=== PATIENT | male | born 1990 | race Caucasian/White ===

== ENCOUNTER 2024-05-13 08:56 | Emergency (ER) | payer OTHER, SELFPAY ==
[2024-05-13 08:57] VITALS: BP 138/81
--- NOTE | 2024-05-13 09:06 | ED.GENMED ---
History of Present Illness
<Joanna Ocampo PA-C - Last Filed: 05/13/24 09:52>
General
Chief Complaint: Eye Problems
Source: patient
Exam Limitations: none
Time Seen by Provider: 05/13/24 09:06
Nursing documentation reviewed up to this point in time: agreed with
History of Present Illness
History of Present Illness:
This is a 33-year-old male with no past medical history presenting emergency department today with concerns of redness and drainage from his right eye. Patient reports that this started yesterday when he first started to develop cough, runny nose,
and sore throat. He noticed that at that same time, his right eye was red and he said there was purulent drainage from his right eye. Patient states that when he woke up this morning, it was difficult to open both of his eyes because of drainage
and he noticed that his eyelids were slightly swollen. Patient states that occasionally he will get some blurry vision when he has drainage in his eye but he states that when he waits it clean, he is able to see without difficulty. Patient denies
any trauma to the area. Patient denies any history of eye problems other than nearsightedness. Patient denies any allergies. Patient denies any chest pain or shortness of breath. Patient has been using Mucinex and lubricating eyedrops with some
relief. He is not a contact lens wearer. He denies any foreign body exposure.
Review of Systems
<Joanna Ocampo PA-C - Last Filed: 05/13/24 09:52>
Review of Systems
All Other Systems: ROS reviewed and negative except as documented in HPI and ROS
Phy Exam
<Joanna Ocampo PA-C - Last Filed: 05/13/24 09:52>
Physical Exam
Physical Exam:
General: Patient is well appearing and in no acute distress; non-toxic
Skin: Warm and dry, no rashes or lesions
Head: Normocephalic, atraumatic
Eyes: Mild bilateral upper palpebral swelling. Right scleral injection noted with mild purulent drainage. Sclera non-icteric. EOMs intact. Vision 20/30.
Mouth: No intraoral lesions
Throat: Mild pharyngeal erythema, uvula midline, no tonsillar hypertrophy or exudates
Cardiac: Regular rate and rhythm, no murmurs
Pulm: Normal respiratory effort, no wheezes, rales, or rhonchi
Neuro: CN II-XII intact, no focal neurologic deficits.
Psychiatric: Appropriate mood and affect.
Course
<Joanna Ocampo PA-C - Last Filed: 05/13/24 09:52>
Vital Signs
Initial and Last Documented VS:
Initial Vital Signs
Temp Pulse Resp BP Pulse Ox
98.3 F 70 16 138/81 98
05/13/24 08:57 05/13/24 08:57 05/13/24 08:57 05/13/24 08:57 05/13/24 08:57
Last Documented Vital Signs
Temp Pulse Resp BP Pulse Ox
98.3 F 70 16 138/81 98
05/13/24 08:57 05/13/24 08:57 05/13/24 08:57 05/13/24 08:57 05/13/24 08:57
<Juan Major MD - Last Filed: 05/13/24 09:52>
Vital Signs
Initial and Last Documented VS:
Initial Vital Signs
Temp Pulse Resp BP Pulse Ox
98.3 F 70 16 138/81 98
05/13/24 08:57 05/13/24 08:57 05/13/24 08:57 05/13/24 08:57 05/13/24 08:57
Last Documented Vital Signs
Temp Pulse Resp BP Pulse Ox
98.3 F 70 16 138/81 98
05/13/24 08:57 05/13/24 08:57 05/13/24 08:57 05/13/24 08:57 05/13/24 08:57
<ZULMA Deleon Last Filed: 05/13/24 09:52>
MDM/Problems Addressed
Differential Diagnosis Includes:
Blepharitis, conjunctivitis, viral syndrome, corneal abrasion, keratitis
MDM/Problems Addressed:
33-year-old male presents to the emergency department today with generalized upper respiratory symptoms as well as bilateral upper palpable swelling and right sided scleral erythema and purulent drainage for the past 2 days. Patient has not had any
fevers or chills, trouble breathing, chest pain. 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 His physical exam is consistent with
conjunctivitis, arthritis. Will send eyedrops to the pharmacy, he is not a contact wearer. Patient stable for discharge.
Chronic conditions affecting care:
n/a
Acute Exacerbation and/or Progression of Chronic Illness:
n/a
<ZULMA Deleon Last Filed: 05/13/24 09:52>
*Pulse Oximetry
Patient hypoxic: no
*Critical Care Note
Total Time (30-74mins, 75-104mins- exclusive of procedures): Not Applicable
Data Reviewed
Review of Other/Old Records Reveals: Records (No previous ER physician documentation to review ) and Discharge Summary (No discharge summary to review)
Source: patient and records
Prescriptions/Medications Considered But Not Given:
n/a
Further Testing Considered But Not Given:
n/a
<Joanna Ocampo PA-C - Last Filed: 05/13/24 09:52>
Patient Management
Escalation/DeEscalation of care consider admission/obs:
Admit not indicated, patient stable for discharge
ED Attending Note
<ZULMA Deleon Last Filed: 05/13/24 09:52>
-
Portions of this chart may have been created with voice recognition software.� Occasional wrong word or��sound alike� substitutions may have occurred due to the inherent limitations of voice recognition software.
<Juan Major MD - Last Filed: 05/13/24 09:52>
ED Attending Note
Patient seen and examined by attending physician: Yes
I performed the substantive portion of visit, reviewed & personally made and approve the management plan that is documented in note by myself or MIMI.: Yes
ED Attending Note:
Bilateral conjunctival injection and drainage. No visual issues. No trauma. No foreign body. No welding. No contacts. No other symptoms.
On exam bilateral conjunctival injection with mild crusting to the eyelids. Corneas are clear. No hyphema. No hypopyon. Antibiotics local compresses and follow-up
Discharge Plan
Departure
Patient Disposition: Home (Routine Discharge)
Date of Disposition: 05/13/24
Time of Disposition: 09:42
Patient with high blood pressure during this ER visit?: Yes
Condition: Good
Discharge Problem:
Conjunctivitis
Instructions: Conjunctivitis (Pinkeye) (DC), How to Use Eye Drops, BLOOD PRESSURE
Prescriptions:
New
ofloxacin 0.3 % drops
2 drp ophthalmic (eye) QID 5 Days Qty: 10 0RF
Referrals:
NONE,* [Family Provider] -
Activity Restrictions/Additional Instructions:
You can return to work, please continue to wear eye protection and please wash your hands and avoid touching your eyes as this can be contagious.
You can continue to use Mucinex and lubricating eyedrops as needed. Ofloxacin drops been sent to your pharmacy, you can instill 1-2 drops into the affected eye every 4 hours for 5 days.
Return to Emergency Department you experience eye pain, persistence of your symptoms, visual loss, or any other signs or symptoms concerning to you.
Interventions
Interventions:
*Risk Screen - Suicide Last Done: 05/13/24 08:57
*General Assessment Last Done: 05/13/24 08:57
*Neglect/Abuse Screening Last Done: 05/13/24 08:57
*ED COVID-19 Vaccine History Last Done: 05/13/24 09:28
Discharge Date and Time
Print Language: GREEK
== END 2024-05-13 10:10 | disposition home or self-care (01) ==
LOC: EMR 08:56
PROVIDERS: EMERGENCY PHYSICIAN Emergency Medicine
DX: H10.9 Unspecified conjunctivitis (principal)
CPT/HCPCS: 99282

== ENCOUNTER 2024-06-25 04:50 | Emergency (ER) | payer OTHER, BC, SELFPAY ==
[2024-06-25 04:52] VITALS: BP 144/90
[2024-06-25 05:40] VITALS: BMI 29.5
--- NOTE | 2024-06-25 06:43 | ED.GENMED ---
History of Present Illness
General
Chief Complaint: Throat Problem
Time Seen by Provider: 06/25/24 06:04
History of Present Illness
History of Present Illness:
Patient is a 33-year-old male with no past department with throat pain. 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 Yesterday he throat was a little scratchy and his voice was slightly worse. He has been having some congestion
rhinorrhea and an occasional cough. No swelling in his throat or his face. He is able to tolerate p.o. He is able to swallow his saliva. He does think this is similar to when he gets his occasional upper respiratory infections. He is presenting
as he wanted to make sure he was not contagious as he does work with other people. He has had some sick contacts. No fevers. No chest pain or shortness of breath.
Phy Exam
Physical Exam
Physical Exam:
GENERAL: in no acute distress
HEENT: normocephalic, extraocular movements intact, moist oral mucosa, erythematous posterior oropharynx with no significant swelling or exudates. Uvula is midline. No tongue swelling or trismus
NECK: normal inspection
RESPIRATORY: no respiratory distress, clear to auscultation bilaterally
CARDIOVASCULAR: regular rate and rhythm
ABDOMEN/: soft, non-distended, non-tender to palpation, no rebound or guarding
EXTREMITIES: non-tender, no edema/swelling
NEUROLOGIC: awake and alert, moves all extremities
SKIN: warm
Course
Orders/Labs/Results
Orders:
Orders
06/25/24 06:26
Ibuprofen [Motrin] 800 mg PO NOW STA
06/25/24 06:55
COVID-19 Antigen Urgent
Source: Nasal Swab
Influenza A+B Rapid Molecular Urgent
ROSARIO Source: Nasal Swab
Specimen Description:
Rapid Strep Group A Urgent
ROSARIO Source: Throat/Pharynx
Specimen Description:
Date Specimen was Collected: 06/25/24
Time Specimen was Collected: 06:36
06/25/24 07:21
Monotest Routine
Vital Signs
Initial and Last Documented VS:
Initial Vital Signs
Temp Pulse Resp BP Pulse Ox
97.7 F 76 18 144/90 98
06/25/24 04:52 06/25/24 04:52 06/25/24 04:52 06/25/24 04:52 06/25/24 04:52
Last Documented Vital Signs
Temp Pulse Resp BP Pulse Ox
97.7 F 76 18 144/90 98
06/25/24 04:52 06/25/24 04:52 06/25/24 04:52 06/25/24 04:52 06/25/24 04:52
MDM/Problems Addressed
Differential Diagnosis Includes:
Patient is a 33-year-old man presenting to the emergency room with 1 day of cough rhinorrhea and throat pain with associated hoarse voice. Vitals here notable for being afebrile. Exam does show clear breath sounds with a slightly erythematous
posterior oropharynx. Likely viral illness. 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 Will obtain COVID flu swab as well as strep and mono testing. Will give ibuprofen.
*Critical Care Note
Total Time (30-74mins, 75-104mins- exclusive of procedures): Not Applicable
Update Note
Update Note:
On reevaluation patient resting comfortably. COVID flu strep negative. Evangeline swab pending with patient is requesting discharge at this time.. Strict return precautions given. Will discharge at this time
ED Attending Note
-
Portions of this chart may have been created with voice recognition software.� Occasional wrong word or��sound alike� substitutions may have occurred due to the inherent limitations of voice recognition software.
Discharge Plan
Departure
Patient Disposition: Home (Routine Discharge)
Date of Disposition: 06/25/24
Time of Disposition: 07:33
Patient with high blood pressure during this ER visit?: No
Discharge Problem:
Acute viral pharyngitis
Instructions: Sore Throat, Adult (DC), Viral Upper Respiratory Infection, Adult (DC)
Prescriptions:
No Action
Medical Marijuana
1 dose PO DAILY PRN (Reason: anxiety)
Referrals:
NONE,* [Family Provider] -
Interventions
Interventions:
*Risk Screen - Suicide Last Done: 06/25/24 04:52
*Neglect/Abuse Screening Last Done: 06/25/24 04:52
ED- Fall Risk Assessment Last Done: 06/25/24 05:40
*ED COVID-19 Vaccine History Last Done: 06/25/24 05:40
ED-EENT Assessment Last Done: 06/25/24 05:40
ED- Pulmonary Assessment Last Done: 06/25/24 05:40
Discharge Date and Time
Print Language: VINCENTIAN
[2024-06-25 07:30] LABS: COVID-19 Antigen Negative (Negative)
[2024-06-25] MEDS: MOTRIN 800 MG PO (07:36)
[2024-06-25 08:27] LABS: Monotest Negative (Negative)
== END 2024-06-25 08:30 | disposition home or self-care (01) ==
LOC: EMR 04:50
PROVIDERS: EMERGENCY PHYSICIAN Student in an Organized Health Care Education/Training Program
DX: J02.8 Acute pharyngitis due to other specified organisms (principal); B97.89 Other viral agents as the cause of diseases classified elsewhere
CPT/HCPCS: 99283; 86308; 87070; 87502; 87811; 87880

== ENCOUNTER 2024-11-05 05:36 | Emergency (ER) | payer OTHER, BC, SELFPAY ==
[2024-11-05 05:38] VITALS: BP 130/100
[2024-11-05 05:51] VITALS: BP 116/74
[2024-11-05 05:55] VITALS: BMI 30.2
[2024-11-05 06:01] VITALS: BP 124/87
[2024-11-05 06:17] LABS: % Basophils 0.4 % (0-2); % Immature Granulocytes 0.4 % (0-0.5); % Lymphocytes 37.4 % (20.5-51.1); % Monocytes 8.3 % (1.7-9.3); % Neutrophils 49.5 % (42.2-75.2); Absolute Eosinophils 0.3 10^3/uL (0-0.7); Absolute Lymphocytes 2.7 10^3/uL (1.2-3.4); Absolute Monocytes 0.6 10^3/uL (0.1-0.6); Absolute Neutrophils 3.6 10^3/uL (1.4-6.5); Hematocrit 42.1 % (39.0-52.0); Hemoglobin 14.5 g/dL (13.0-18.0); Mean Corp Hgb Conc. 34.4 g/dL (33.0-37.0); Mean Corpuscular Hgb 30.5 pg (27.0-31.0); Mean Corpuscular Volume 88.6 fL (80.0-94.0); Mean Platelet Volume 10.2 fL (7.4-10.4); Nucleated Red Blood Cells % 0 % (-); Platelet Count 222 10^3/uL (130-400); Red Blood Cell Count 4.75 10^6/uL (4.70-6.10); Red Cell Dist. Width 13.2 % (11.5-14.5); White Blood Cell Count 7.3 10^3/uL (4.8-10.8)
--- NOTE | 2024-11-05 06:17 | ED.GENMED ---
History of Present Illness
General
Chief Complaint: Chest Pain
Source: patient and other (Girlfriend)
Exam Limitations: none
Time Seen by Provider: 11/05/24 06:01
History of Present Illness
History of Present Illness:
This patient is a 34-year-old male who presents emergency department with complaints of chest pain. He describes the pain as central and to the left, sometimes rating to the left arm. He states he gets this pretty commonly, unable to say exactly
how often, but in his opinion always create created or provoked by anxiety. He states that he awoke at 4:30 AM to use the restroom which would not be unusual for him. At that that time that he noted the typical chest discomfort which he describes
as 'heavy'. He got concerned however because it is lasting 'longer than usual'. The intensity of discomfort waxes and wanes without specific provoking or relieving factors. It is not pleuritic in nature. He denies associated neck pain, back
pain, headache, dizziness, diaphoresis, vomiting. He thinks he might be slightly nauseous. He denies abdominal pain, numbness, tingling, recent immobilization, recent trauma. He states that his father of hypertensive heart disease last year,
age mid 50s. Otherwise he denies concerning personal or family history.
Past History
Past History
ED Past Medical History: Psychiatric
ED Past Surgical History: Other (Hernia)
Social History
Tobacco: Vaping
Alcohol: Occasional
Drug: Marijuana (Medical)
Personal: Single
Employment: Employed
Phy Exam
Physical Exam
Physical Exam:
GENERAL: Alert , in no apparent distress
EYE: pupils equal and reactive
NECK: Supple, no significant adenopathy.
ENT: o/p clr, mmm.
CARDIAC: Regular rate and rhythm .
LUNGS: Clear breath sounds bilaterally, no acute respiratory distress, no wheezes/rales/rhonchi
ABDOMEN: Soft, without focal tenderness, no r/g, no cvat
NEUROLOGICAL: Alert and oriented, no focal neuro deficits
SKIN: Warm and dry, skin intact.
MUSCULOSKELETAL: No edema, well perfused.
PSYCH: Normal and appropriate interaction, appears slightly anxious.
Scores
Heart Score for Chest Pain Patients
STEMI patient?: Not applicable
Course
Orders/Labs/Results
Orders:
Orders
11/05/24 05:41
ECG [Electrocardiogram (*1)] Urgent
Reason for Study: Chest Pain
EKG- Treatment ONCE
11/05/24 05:45
Electrocardiogram (*1) Urgent
Reason for Study: Chest Pain
Cardiac Monitoring- Treatment ONCE
EKG- Treatment ONCE
IV Insert/Care/Rem.- Treatment PRN
O2 Therapy [RESP] Urgent
Titrate/Wean O2 to maintain O2 sat greater than (%): 90
Special Instructions: Maintain sats >/=90%
Pulse Ox/spot Check [RESP] Urgent
Quantity: 1
Special Instructions: ON ROOM AIR
11/05/24 06:03
Complete Blood Count/With Diff Urgent
Comprehensive Metabolic Panel Urgent
Troponin I Urgent
11/05/24 06:05
D-Dimer Urgent
Abnormal Lab Results
11/05/24
06:03
BUN 23 H mg/dl
(9-20)
Glucose 107 H mg/dl
(70-99)
11/05/24 06:03
11/05/24 06:03
Vital Signs
Initial and Last Documented VS:
Initial Vital Signs
Temp Pulse Resp BP Pulse Ox
97.4 F 65 26 130/100 97
11/05/24 05:38 11/05/24 05:38 11/05/24 05:38 11/05/24 05:38 11/05/24 05:38
Last Documented Vital Signs
Temp Pulse Resp BP Pulse Ox
97.4 F 64 13 124/87 99
11/05/24 05:38 11/05/24 06:15 11/05/24 06:15 11/05/24 06:01 11/05/24 06:15
*Critical Care Note
Total Time (30-74mins, 75-104mins- exclusive of procedures): Not Applicable
Update Note
Update Note:
Patient presents to the Emergency Department with
Number and Complexity of Problems Addressed at the Encounter
� Chronic conditions affecting care:
� Acute Exacerbation and/or Progression of Chronic Illness:
� Differential Diagnosis includes: But not limited to anxiety, ACS, PE, pericarditis, etc. etc. etc.
Amount and/or Complexity of Data to be Reviewed and Analyzed
� I performed an independent evaluation of and my interpretation is:
EKG: Read by me, normal sinus rhythm, normal rate, normal axis, no acute ischemia
CT:
Xrays:
Laboratory Studies: Unremarkable
Other:
� Review of other/old records reveals:
� Clinical information was obtained by an independent historian:
� Prescriptions/Medications Considered but not given:
� Further testing considered but not performed:
Risk of Complications and/or Morbidity or Mortality of Patient Management
� Social determinants of health affecting care:
� Discussion with other providers (PCP, Hospitalists, Consultants, etc):
� Escalation of care including admission/observation vs risk of discharge considered: 7:50 AM patient resting comfortably feels much better, no new symptoms, no dyspnea, vital signs normal, etc. No 'red flag' findings on history
physical or evaluation here to suggest more worrisome etiology for his symptoms at this time. Strongly encouraged follow-up with a PCP. Patient made aware of his elevated blood pressure and need for follow-up concerning.
ED Attending Note
-
Portions of this chart may have been created with voice recognition software.� Occasional wrong word or��sound alike� substitutions may have occurred due to the inherent limitations of voice recognition software.
Discharge Plan
Departure
Patient Disposition: Home (Routine Discharge)
Date of Disposition: 11/05/24
Time of Disposition: 07:50
Patient with high blood pressure during this ER visit?: Yes
Condition: Good
Discharge Problem:
Chest pain
Instructions: Chest Pain PCP Follow Up, BLOOD PRESSURE
Prescriptions:
No Action
Medical Marijuana
1 dose PO DAILY PRN (Reason: anxiety)
Referrals:
UNKNOWN - PT DOES,NOT KNOW [Family Provider] -
Activity Restrictions/Additional Instructions:
IF YOU DEVELOP INCREASING/NEW/PERSISTENT CHEST PAIN, TROUBLE BREATHING, FEVER, VOMITING, GET WORSE, DO NOT GET BETTER, OR OTHER WORRISOME SIGNS, GO TO THE ER IMMEDIATELY! WE HAVE CONTACTED THE [facility] AND THEY WILL REACH
OUT TO YOU TO MAKE AN APPOINTMENT SO THAT YOU CAN ESTABLISH A PRIMARY CARE DOCTOR.
Interventions
Interventions:
*Risk Screen - Suicide Last Done: 11/05/24 05:38
*General Assessment Last Done: 11/05/24 05:54
*Neglect/Abuse Screening Last Done: 11/05/24 05:38
*ED- Fall Risk Assessment Last Done: 11/05/24 05:54
*ED COVID-19 Vaccine History Last Done: 11/05/24 05:54
ED- Cardiac Assessment Last Done: 11/05/24 06:07
Discharge Date and Time
Print Language: CROATIAN
[2024-11-05 06:29] LABS: ALT (SGPT) 45 U/L (0-50); AST (SGOT) 34 U/L (17-59); Albumin 4.1 g/dl (3.5-5.0); Alkaline Phosphatase 67 U/L (38-126); Blood Urea Nitrogen 23 mg/dl (9-20); Calcium 9.7 mg/dl (8.4-10.2); Carbon Dioxide 29 mmol/L (22-30); Chloride 107 mmol/L (98-107); Estimated Creatinine Clearance > 125 ml/min; Glucose 107 mg/dl (70-99); Potassium 4.5 mmol/L (3.5-5.1); Sodium 142 mmol/L (135-145); Total Bilirubin 0.5 mg/dl (0.2-1.3); Total Protein 7.3 g/dl (6.3-8.2); eGFR > 60.00
[2024-11-05 06:41] LABS: Troponin I < 0.012 ng/ml
[2024-11-05 06:47] LABS: D-Dimer < 0.27 ug/mlFEU (0.00-0.50)
[2024-11-05 07:11] VITALS: BP 125/80
[2024-11-05 08:27] VITALS: BP 112/80
== END 2024-11-05 08:28 | disposition home or self-care (01) ==
LOC: EMR 05:36
PROVIDERS: Student in an Organized Health Care Education/Training Program; EMERGENCY PHYSICIAN Emergency Medicine
DX: R07.89 Other chest pain (principal); F17.290 Nicotine dependence, other tobacco product, uncomplicated; R03.0 Elevated blood-pressure reading, without diagnosis of hypertension
CPT/HCPCS: 99284; 80053; 84484; 85025; 85379; 93005

== ENCOUNTER 2024-11-24 13:15 | Inpatient (IN) | payer OTHER, SELFPAY ==
[2024-11-24] VITALS (20 sets, daily range): BP systolic 100–136; BP diastolic 33–98; BMI 29.9; BMI 29.5
--- NOTE | 2024-11-24 05:01 | ED.GENMED ---
History of Present Illness
<Joanna Ocampo PA-C - Last Filed: 11/24/24 06:24>
General
Chief Complaint: Abdominal Symptoms
Source: patient
Exam Limitations: none
Time Seen by Provider: 11/24/24 05:01
Nursing documentation reviewed up to this point in time: agreed with
History of Present Illness
History of Present Illness:
This is a 34-year-old male with no past medical history of anxiety, depression who presents emergency department today with concerns of episode of hematemesis. Patient reports that he woke up in the middle of the night feeling nauseous and had one
episode of brown vomitus mixed with blood. This has never happened to patient before. He does not drink alcohol, he has no history of NSAID use. Of note, he recently started Lexapro 3 weeks ago. Patient reports a few days prior to this
occurring, he had a few hours of forceful vomiting and transient abdominal discomfort but that did resolve. He denies any sick contacts. He denies any diarrhea. He denies any chest pain or shortness of breath.
Past History
<Joanna Ocampo PA-C - Last Filed: 11/24/24 06:24>
Past History
ED Past Medical History: Psychiatric
ED Past Surgical History: Other (Hernia)
Social History
Tobacco: Vaping
Alcohol: Occasional
Drug: Marijuana (Medical)
Personal: Single
Employment: Employed
Review of Systems
<Joanna Ocampo PA-C - Last Filed: 11/24/24 06:24>
Review of Systems
All Other Systems: ROS reviewed and negative except as documented in HPI and ROS
Phy Exam
<Joanna Ocampo PA-C - Last Filed: 11/24/24 06:24>
Physical Exam
Physical Exam:
General: Patient is well appearing and in no acute distress; non-toxic
Skin: Warm and dry, no rashes or lesions
Head: Normocephalic, atraumatic
Eyes: Sclera non-icteric. EOMs intact.
Throat: No pharyngeal erythema, no blood in posterior pharynx
Cardiac: Regular rate and rhythm, no murmurs
Peripheral Vascular: No lower extremity swelling or edema
Pulm: Normal respiratory effort, no wheezes, rales, or rhonchi
Abdomen: Abdomen is soft and non-tender
Neuro: CN II-XII intact, no focal neurologic deficits.
Psychiatric: Appropriate mood and affect.
Course
<Joanna Ocampo PA-C - Last Filed: 11/24/24 06:24>
Orders/Labs/Results
Orders:
Orders
11/24/24 05:11
Type+Screen Urgent
11/24/24 05:12
Complete Blood Count/With Diff Urgent
Comprehensive Metabolic Panel Urgent
Lipase Urgent
Comment: ADD ON
11/24/24 05:16
Add On- LAB Urgent
Tests Added?: lipase
Pantoprazole [Protonix IV] 40 mg IV NOW STA
11/24/24 05:41
US Abdomen Complete/Upper Urgent
Comment:
Reason For Exam: epigastric pain
11/24/24 05:43
ABO2 Routine
BBK Wristband Number:
Associate notified that ABO2 has been ordered: VONNIE
Date: 11/24/24
Time: 05:19
[employer] Manager ID: [id number]
11/24/24 05:45
Lactated Ringers [Lr] 1,000 ml IV BOLUS
11/24/24 Lunch
NPO
Allow oral meds: Yes
Allow clear liquids: Sips of Clears
NPO with Ice Chips: Yes
11/24/24 12:57
Admit/Transfer Patient As Directed
Co-Sign Provider:
Level of Care: Inpatient admission
Assign to:: Telemetry
Physician / Group: Dr. Kole Nash/Hospitalists
Diagnosis: Acute Pancreatitis, Upper Gastrointestinal Bleeding
Reason for Telemetry: Arrhythmia
Date to Stop Telemetry: 11/27/24
Time to Stop Telemetry: 11:00
Reason for Hospitalization: Acute Pancreatitis, Upper Gastrointestinal Bleeding
Expected length of stay greater than two midnights?: Yes
ELOS- Estimated Length of Stay in days: 3
I certify the patient meets the requirements for IP care: Yes
11/24/24 12:59
Code Status As Directed
Resuscitation Status: Full Code
11/24/24 13:03
GASTROINTESTINAL CONSULT Routine
Consulting Provider: Carlita Hawkins
Was physician already notified: Yes
Reason for consult: Upper GI Bleed, Concern for acute pancreatitis
11/24/24 13:05
Lactated Ringers [Lr] 1,000 ml IV 250 mls/hr
11/24/24 15:51
Activity As Directed
Activity Level: As Tolerated
Intake/ Output As Directed
Frequency: q12h
Pneumatic Compression Sleeves As Directed
Type: Knee high
Vital Signs As Directed
Frequency: Per unit guidelines
DX Deep Vein Thrombosis Video Routine
11/24/24 20:00
Pantoprazole [Protonix IV] 40 mg IV BID
11/25/24 08:00
Escitalopram Oxalate [Lexapro] 10 mg PO DAILY
11/25/24 08:30
Complete Blood Count/No Diff IN AM
Magnesium IN AM
11/27/24 11:00
DC Protocol for Telemetry ONCE
Abnormal Lab Results
11/24/24
05:12
RBC 4.64 L 10^6/uL
(4.70-6.10)
Absolute Monos (auto) 0.7 H 10^3/uL
(0.1-0.6)
Chloride 109 H mmol/L
(98-107)
Glucose 114 H mg/dl
(70-99)
Lipase 1455 H* U/L
(23-300)
11/24/24 05:12
11/24/24 05:12
Vital Signs
Initial and Last Documented VS:
Initial Vital Signs
Temp Pulse Resp BP Pulse Ox
98.5 F 58 20 136/98 100
11/24/24 04:55 11/24/24 04:55 11/24/24 04:55 11/24/24 04:55 11/24/24 04:55
Last Documented Vital Signs
Temp Pulse Resp BP Pulse Ox
98.7 F 48 18 150/86 99
11/25/24 15:05 11/25/24 15:05 11/25/24 15:05 11/25/24 15:05 11/25/24 15:05
<Dani Rowley PA-C - Last Filed: 11/24/24 08:08>
Orders/Labs/Results
Orders:
Orders
11/24/24 05:11
Type+Screen Urgent
11/24/24 05:12
Complete Blood Count/With Diff Urgent
Comprehensive Metabolic Panel Urgent
Lipase Urgent
Comment: ADD ON
11/24/24 05:16
Add On- LAB Urgent
Tests Added?: lipase
Pantoprazole [Protonix IV] 40 mg IV NOW STA
11/24/24 05:41
US Abdomen Complete/Upper Urgent
Comment:
Reason For Exam: epigastric pain
11/24/24 05:43
ABO2 Routine
BBK Wristband Number:
Associate notified that ABO2 has been ordered: VONNIE
Date: 11/24/24
Time: 05:19
[employer] Manager ID: [id number]
11/24/24 05:45
Lactated Ringers [Lr] 1,000 ml IV BOLUS
11/24/24 Lunch
NPO
Allow oral meds: Yes
Allow clear liquids: Sips of Clears
NPO with Ice Chips: Yes
11/24/24 12:57
Admit/Transfer Patient As Directed
Co-Sign Provider:
Level of Care: Inpatient admission
Assign to:: Telemetry
Physician / Group: Dr. Kole Nash/Hospitalists
Diagnosis: Acute Pancreatitis, Upper Gastrointestinal Bleeding
Reason for Telemetry: Arrhythmia
Date to Stop Telemetry: 11/27/24
Time to Stop Telemetry: 11:00
Reason for Hospitalization: Acute Pancreatitis, Upper Gastrointestinal Bleeding
Expected length of stay greater than two midnights?: Yes
ELOS- Estimated Length of Stay in days: 3
I certify the patient meets the requirements for IP care: Yes
11/24/24 12:59
Code Status As Directed
Resuscitation Status: Full Code
11/24/24 13:03
GASTROINTESTINAL CONSULT Routine
Consulting Provider: Carlita Hawkins
Was physician already notified: Yes
Reason for consult: Upper GI Bleed, Concern for acute pancreatitis
11/24/24 13:05
Lactated Ringers [Lr] 1,000 ml IV 250 mls/hr
11/24/24 15:51
Activity As Directed
Activity Level: As Tolerated
Intake/ Output As Directed
Frequency: q12h
Pneumatic Compression Sleeves As Directed
Type: Knee high
Vital Signs As Directed
Frequency: Per unit guidelines
DX Deep Vein Thrombosis Video Routine
11/24/24 20:00
Pantoprazole [Protonix IV] 40 mg IV BID
11/25/24 08:00
Escitalopram Oxalate [Lexapro] 10 mg PO DAILY
11/25/24 08:30
Complete Blood Count/No Diff IN AM
Magnesium IN AM
11/27/24 11:00
DC Protocol for Telemetry ONCE
Abnormal Lab Results
11/24/24
05:12
RBC 4.64 L 10^6/uL
(4.70-6.10)
Absolute Monos (auto) 0.7 H 10^3/uL
(0.1-0.6)
Chloride 109 H mmol/L
(98-107)
Glucose 114 H mg/dl
(70-99)
Lipase 1455 H* U/L
(23-300)
11/24/24 05:12
11/24/24 05:12
Vital Signs
Initial and Last Documented VS:
Initial Vital Signs
Temp Pulse Resp BP Pulse Ox
98.5 F 58 20 136/98 100
11/24/24 04:55 11/24/24 04:55 11/24/24 04:55 11/24/24 04:55 11/24/24 04:55
Last Documented Vital Signs
Temp Pulse Resp BP Pulse Ox
98.7 F 48 18 150/86 99
11/25/24 15:05 11/25/24 15:05 11/25/24 15:05 11/25/24 15:05 11/25/24 15:05
<Joanna Ocampo PA-C - Last Filed: 11/24/24 06:24>
MDM/Problems Addressed
Differential Diagnosis Includes:
ddx include lucrecia kim tear, peptic ulcer disease, GERD, gastroenteritis, pancreatitis, cholecystitis
MDM/Problems Addressed:
34 y/o male hx of anxiety, depression, chief complaint one episode of hematemesis with no abdominal pain. He is not a drinker. Suspect hematemesis from multiple episodes of forceful vomiting the day prior. H+H stable. Lipase consistent with acute
pancreatitis. No evidence of obstructive process on CMP. Ultrasound pending. Patient signed out to Andrea MAYA for admission to hospitalist.
Chronic conditions affecting care:
anxiety, depression
<Joanna Ocampo PA-C - Last Filed: 11/24/24 06:24>
*Pulse Oximetry
Patient hypoxic: no
*Critical Care Note
Total Time (30-74mins, 75-104mins- exclusive of procedures): Not Applicable
Data Reviewed
Review of Other/Old Records Reveals: Records (Reviewed previous ER physician documentation from 11/05/2024 patient seen for chest pain radiating down to the left arm, he was discharged with unremarkable workup)
Source: patient and records
<Dani Rowley PA-C - Last Filed: 11/24/24 08:08>
Update Note
Update Note:
Received care of patient on signout pending ultrasound of abdomen. Ultrasound of abdomen was reviewed and negative for acute finding other than a simple cyst of the right kidney. Patient has acute pancreatitis. Will admit to hospital
ED Attending Note
<Joanna Ocampo PA-C - Last Filed: 11/24/24 06:24>
-
Portions of this chart may have been created with voice recognition software.� Occasional wrong word or��sound alike� substitutions may have occurred due to the inherent limitations of voice recognition software.
Discharge Plan
Departure
Patient Disposition: Admit
Date of Disposition: 11/24/24
Time of Disposition: 08:08
Presentation/result/management discussed w/ accepting MD/DO: Hospitalist
Patient with high blood pressure during this ER visit?: No
Condition: Good
Discharge Problem:
Acute pancreatitis
Interventions
Interventions:
*Risk Screen - Suicide Last Done: 11/24/24 04:55
*General Assessment Last Done: 11/24/24 05:10
*Neglect/Abuse Screening Last Done: 11/24/24 04:55
*ED- Fall Risk Assessment Last Done: 11/24/24 05:45
*ED COVID-19 Vaccine History Last Done: 11/24/24 05:45
*Nursing Disposition Last Done: 11/24/24 18:15
KL-Imtzqg-Zxgkypgxaz Assessment Last Done: 11/24/24 12:43
Discharge Date and Time
Discharge Date/Time: 11/24/24 18:15
[2024-11-24 05:18] LABS: % Basophils 0.5 % (0-2); % Eosinophils 2.8 % (0-6); % Immature Granulocytes 0.1 % (0-0.5); % Lymphocytes 34.1 % (20.5-51.1); % Neutrophils 53.5 % (42.2-75.2); Absolute Eosinophils 0.2 10^3/uL (0-0.7); Absolute Lymphocytes 2.8 10^3/uL (1.2-3.4); Absolute Monocytes 0.7 10^3/uL (0.1-0.6); Absolute Neutrophils 4.3 10^3/uL (1.4-6.5); Hematocrit 41.8 % (39.0-52.0); Mean Corp Hgb Conc. 33.5 g/dL (33.0-37.0); Mean Corpuscular Hgb 30.2 pg (27.0-31.0); Mean Corpuscular Volume 90.1 fL (80.0-94.0); Mean Platelet Volume 10.1 fL (7.4-10.4); Nucleated Red Blood Cells % 0 % (-); Platelet Count 211 10^3/uL (130-400); Red Blood Cell Count 4.64 10^6/uL (4.70-6.10); Red Cell Dist. Width 13.5 % (11.5-14.5); White Blood Cell Count 8.1 10^3/uL (4.8-10.8)
[2024-11-24] MEDS: PROTONIX IV 40 MG IV ×2 (05:23→20:04)
[2024-11-24 05:41] LABS: ALT (SGPT) 43 U/L (0-50); AST (SGOT) 29 U/L (17-59); Albumin 4.1 g/dl (3.5-5.0); Alkaline Phosphatase 70 U/L (38-126); Blood Urea Nitrogen 15 mg/dl (9-20); Calcium 9.2 mg/dl (8.4-10.2); Carbon Dioxide 26 mmol/L (22-30); Chloride 109 mmol/L (98-107); Estimated Creatinine Clearance 117 ml/min; Glucose 114 mg/dl (70-99); Lipase 1455 U/L (23-300); Potassium 4.3 mmol/L (3.5-5.1); Sodium 143 mmol/L (135-145); Total Bilirubin 0.4 mg/dl (0.2-1.3); Total Protein 7.1 g/dl (6.3-8.2); eGFR > 60.00
[2024-11-24] MEDS: LR 1000 IV ×4 (06:01→23:48)
--- NOTE | 2024-11-24 12:50 | EDRN ---
Dr. Nash in to see pt.
--- NOTE | 2024-11-24 13:01 | HPS.HSE ---
Family Physician
-
Family Physician: Elle Gaspar MD, Residen
Chief Complaint
-
Bloody vomit
History of Present Illness
34 y/o male with past medical history of anxiety, depression and marijuana use, presented with vomiting dark red blood today. Patient says that 4 days prior, he developed central abdominal pain while driving, as well as non-bloody vomit at that
time. His symptoms went away within 1 day. But very early in the morning today, patient once again had vomiting, but this brown/bloody vomit, consistent with 'coffee-ground' vomiting. He had some abdominal discomfort as well. He denied any other
symptoms.
Medical History
Past Medical History
Past Medical History: Reports Other (As per HPI above)
Past Surgical History: Reports Other (Hernia Surgery)
Social History
Tobacco: Vaping (Non-Nicotine)
Alcohol: Occasional
Drug: Marijuana
Family History
Family History: Diabetes and Hypertension
Allergies / Home Medications
Allergies reflects when Allergies were last updated in [employer].
Home Medications with original date entered in [employer]
Allergy/Medication List:
Allergies
Allergy/AdvReac Type Severity Reaction Status Date / Time
No Known Allergies Allergy Verified 11/24/24 04:58
Home Medications
Medical Marijuana 1 puff inhalation HSPRN PRN anxiety 06/25/24
escitalopram oxalate 10 mg tablet 10 mg PO DAILY 11/24/24
Review of Systems
-
A 12 point ROS was completed and negative except as noted: Yes
Physical Exam
Vital Signs
Vital Signs
Temp Pulse Resp BP Pulse Ox
97.6 F 47 12 108/70 98
11/24/24 12:42 11/24/24 12:30 11/24/24 11:30 11/24/24 12:01 11/24/24 12:30
Physical Exam
General: No Apparent Distress and Comfortable
HEENT: NormoCephalic and Other (+subconjunctival hemorrhage of right eye, medial aspect)
Respiratory: Clear
Cardiac: S1/S2 and Regular Rhythm
GI: Soft, Normal Bowel Sounds and Tender (Mild epigastric and central tenderness)
Musculoskeletal: No Cyanosis
Skin: Warm and Dry
Neuro: Awake, Alert, AO x 3 and Nonfocal/grossly intact
Psych: Calm and Intact Judgment/Insight
Laboratory Results
-
11/24/24 05:12
11/24/24 05:12
Laboratory Results
Total Bilirubin 0.4 mg/dl (0.2-1.3) 11/24/24 05:12
AST 29 U/L (17-59) 11/24/24 05:12
ALT 43 U/L (0-50) 11/24/24 05:12
Alkaline Phosphatase 70 U/L (38-126) 11/24/24 05:12
Lipase 1455 U/L (23-300) H* 11/24/24 05:12
Impression/Plan
-
Assessment/Plan
Hematemesis
- Isolated episode of hematemesis, suspect likely due to Re Georges tear secondary to recent intermittent forceful vomiting
- Hgb stable - continue to trend Hgb
- Continue Protonix 40 mg IV BID
- Possible upper endoscopy as per GI
Abdominal Pain, epigastric -- concern for mild acute pancreatitis
- with mild abdominal pain and elevated lipase (1455), patient meets criteria for acute pancreatitis
- continue IV fluids 250 cc/hr, monitor for any urinary retention or volume/fluid overload
- Will consider CT vs MRI/MRCP
- Appreciate GI
DVT Prophylaxis: Lovenox
Code Status: Full Code
--- NOTE | 2024-11-24 13:45 | CON.GI ---
Addendum entered and electronically signed by Carlita Hawkins DO 11/24/24 16:20:
Patient seen and examined independently of the physicians assistant director of plant operations. I agree with her note with my additions below
Fei is a 34-year-old male otherwise healthy with a history of anxiety recently started Lexapro, chronic daily heavy medical marijuana user who comes in with bloating nausea with no significant pain who had an episode of coffee-ground emesis but
none here in the hospital. Symptoms started last week after a shot of rum Linda which he said made him feel ill and therefore he did not drink anymore. He was worried it was due to starting the new medication Lexapro. He does not drink often and
usually only a shot at social situations. He has no chronic nausea vomiting and has never had pancreatitis or any other GI issue in the past. He denies any heartburn, no regurgitation, not on a PPI. Denies any weight loss appetite changes. No
family history of any GI malignancies or issues.
On after the shot of alcohol he felt very nauseated and retched but mainly saliva, patient retched so hard he has a subconjunctival hemorrhage. He retched multiple times but mainly all saliva. Said he felt like something was stuck and he
could get it out. At that time he had no significant pain just some mild queasiness and nausea and bloating. He felt fine over the weekend with no problems eating then this morning after awakening early in the morning had a normal bowel movement
then felt bloated nauseous but no significant pain then vomited coffee-ground's on the first episode. Has not vomited since and currently denies any nausea or pain.
Not on PPI. No significant NSAID use
On exam he is tender in the epigastric area. He has bowel sounds.
In the emergency room normal hemoglobin of 14 with no leukocytosis, lipase elevated at 1455 otherwise normal LFTs. Ultrasound shows a normal gallbladder with no ductal dilatation. Normal echogenicity, normal spleen. Visualized pancreas appears
normal.
# Nausea retching bloating with minimal epigastric discomfort
-- Gastric ulcer versus esophagitis versus pancreatitis
-- Patient does have an elevated lipase and has tenderness on palpation but story is not classic and therefore would proceed to CT imaging
-- Ordered CT with IV and oral contrast
-- IV fluids, clear liquids, twice daily PPI
Original Note:
Consultation
-
Date/Time Consultation Requested: 11/24/24 1303
Date/Time Consultation Performed: 11/24/24 1410
Requesting Provider: Dr. Nash
Performing Provider: Dr Hawkins / Brooke Fields PA-C
Reason for Consultation: hematemesis / pancreatitis
Medical History
Chief Complaint / HPI
Chief Complaint: vomiting
History of Present Illness:
This is a 34 year old male with a past medical history of anxiety who presented to the ER after an episode of hematemesis that occurred early this morning. He woke up in the night feeling nauseous with mild epigastric abdominal pain and vomited x1,
described as 'dark brown' with red blood mixed in the vomit. He states it did look like coffee grounds. Since then he has had no further vomiting. He complains of a mild epigastric abdominal pain. No fever, chills, or diarrhea. He denies any sick
contacts. He states the nausea and vomiting started 4 days ago and that he did have multiple episodes of forceful vomiting, but denies any hematemesis or coffee grounds emesis at that time. Patient vapes and uses medical marijuana daily, which he
states helps his anxiety. He admits to very rare alcohol use and denies NSAID use. He has never had an endoscopy.
Labs reveal stable hemoglobin at 14.0 and no leukocytosis. Lipase elevated at 1455. Normal LFTs. Abdominal ultrasound showed a normal gallbladder without mention of gallstones and normal pancreas. He denies a prior history of pancreatitis. He did
start a new medication about 3 weeks ago, Lexapro, which he feels is helping his anxiety. Patient denies a family history of any GI malignancies.
Past Medical History
Past Medical History: Psychiatric (anxiety)
Past Surgical History: Other (hernia repair)
Social History
Tobacco: Vaping
Alcohol: Occasional
Drug: Marijuana (daily)
Personal: Partner
Living: With Family
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
Family History
Family History: Other (no family history of GI malignancies)
Allergies / Home Medications
Allergy/AdvReac Type Severity Reaction Status Date / Time
No Known Allergies Allergy Verified 11/24/24 04:58
�Medication �Instructions �Recorded
Medical Marijuana 1 puff inhalation HSPRN PRN anxiety 06/25/24
escitalopram oxalate 10 mg tablet 10 mg PO DAILY 11/24/24
Review of Systems
-
History Source: Patient
All other systems: A 12 pt ROS was Negative except as stated above in HPI
Vital Signs
Temp Pulse Resp BP Pulse Ox
97.6 F 47 12 108/70 98
11/24/24 12:42 11/24/24 12:30 11/24/24 11:30 11/24/24 12:01 11/24/24 12:30
Physical Exam
Exam
General: Well Developed, Well Nourished and No Apparent Distress
HEENT: Normocephalic, Anicteric, Moist Mucous Membranes and Other (+subconjunctival hemorrhage of right eye, medial aspect)
Respiratory: Clear
Cardiac: Regular Rhythm
GI: Soft, Non Distended, Normal Bowel Sounds and Tender (+mild epigastric tenderness)
Skin: Warm and Dry
Neuro: AO x 3
Psych: Calm
Results
WBC 8.1 10^3/uL (4.8-10.8) 11/24/24 05:12
Hgb 14.0 g/dL (13.0-18.0) 11/24/24 05:12
Hct 41.8 % (39.0-52.0) 11/24/24 05:12
MCV 90.1 fL (80.0-94.0) 11/24/24 05:12
Plt Count 211 10^3/uL (130-400) 11/24/24 05:12
Absolute Neuts (auto) 4.3 10^3/uL (1.4-6.5) 11/24/24 05:12
Sodium 143 mmol/L (135-145) 11/24/24 05:12
Potassium 4.3 mmol/L (3.5-5.1) 11/24/24 05:12
Chloride 109 mmol/L (98-107) H 11/24/24 05:12
Carbon Dioxide 26 mmol/L (22-30) 11/24/24 05:12
BUN 15 mg/dl (9-20) 11/24/24 05:12
Creatinine 0.9 mg/dL (0.7-1.3) 11/24/24 05:12
Calcium 9.2 mg/dl (8.4-10.2) 11/24/24 05:12
Total Bilirubin 0.4 mg/dl (0.2-1.3) 11/24/24 05:12
AST 29 U/L (17-59) 11/24/24 05:12
ALT 43 U/L (0-50) 11/24/24 05:12
Alkaline Phosphatase 70 U/L (38-126) 11/24/24 05:12
Lipase 1455 U/L (23-300) H* 11/24/24 05:12
Diagnostic Image Results:
US Abdomen: 11/24/24
Small simple cyst arising in the lower pole the right kidney.
Pancreas appears normal.
No other sonographic abnormality.
Prior GI Procedures:
EGD: never
Colonoscopy: never
Assessment / Plan
-
34 year old male with anxiety who presented to the ER after an episode of hematemesis earlier this morning and complained of intermittent nausea and forceful vomiting that started 4 days ago. He currently complains of mild epigastric discomfort. The
episode of hematemesis occurred once, described as 'dark brown' with red blood mixed in the vomit. No chest pain or shortness of breath and patient is hemodynamically stable. Hgb stable at 14.0. Lipase is elevated at 1455. Abdominal ultrasound shows
normal gallbladder without mention of gallstones and normal pancreas. No prior h/o pancreatitis. He did recently start Lexapro 3 weeks ago, no other new medications. Rare alcohol use, no NSAIDs.
IMPRESSION / PLAN:
Hematemesis
- isolated episode of hematemesis, suspect likely due to Re Georges tear secondary to recent intermittent forceful vomiting
- Hgb stable at 14.0
- continue to trend Hgb
- continue PPI (Protonix)
- to consider endoscopy, but as the hematemesis has not recurred and Hgb stable, can monitor for any worsening symptoms
Abdominal Pain, epigastric -- concern for mild acute pancreatitis
- with mild abdominal pain and elevated lipase (1455), patient meets criteria for acute pancreatitis
- continue IV fluids
- consider further imaging of pancreas - CT vs MRI/MRCP - as ultrasound was normal
- antiemetics and pain medication per hospitalist
- etiology of pancreatitis unclear - does not appear to be ETOH or gallstones. He did start a new medication 3 weeks ago - Lexapro - but pancreatitis is not a listed adverse effect of this medication.
- consider IgG4 levels to rule out autoimmune pancreatitis
-
-
Thank you for consultation and allowing me to participate in the patient's care. Please call the [facility] GI physician during the after hours with any questions or concerns.
--- NOTE | 2024-11-24 15:45 | CM ---
CM met with pt bedside
Pt resides with his fiance and inlaws and combined 2 children in a raised ranc[place], [place]
Children are 3 and 7 y/o in the home, he has two other children with ex that do not reside in the home 7 and 12 y/o
Pt is indep with his ADLs, no DMEs, drives+
Denies financial insecurities
PCP- [facility]
Rx- [facility] [address]
Discharge Disposition- anticipate home no needs
[2024-11-24] MEDS: OMNIPAQUE 50 ML PO (16:19)
[2024-11-24] MEDS: NSS (PRESERVATIVE FREE) 10 ML IV (20:04)
--- NOTE | 2024-11-24 23:30 | PTCARENOTE ---
Pt's HR running in upper 30's on gambling monitor for about 1 hr. Patient reported feeling fine when he was awake. HR remained in upper 30's while asleep. Vitals 130/76 Temp 97.6 RR 18 Pulse ox 98% on room air. [employer] notified. Patient denies having
sleep apnea. Did not observe pauses in breathing or snoring while patient was asleep. HR does go up into the 70s when ambulating. No intervention needed at this time.
[2024-11-25 03:07] VITALS: BP 120/84
[2024-11-25] MEDS: LR 1000 IV ×4 (03:55→15:56)
[2024-11-25 07:25] VITALS: BP 118/65
[2024-11-25] MEDS: LEXAPRO 10 MG PO (07:52)
[2024-11-25] MEDS: PROTONIX IV 40 MG IV (07:52)
[2024-11-25] MEDS: NSS (PRESERVATIVE FREE) 10 ML IV (07:52)
[2024-11-25 09:09] LABS: Hematocrit 40.6 % (39.0-52.0); Hemoglobin 13.7 g/dL (13.0-18.0); Mean Corp Hgb Conc. 33.7 g/dL (33.0-37.0); Mean Corpuscular Hgb 30.2 pg (27.0-31.0); Mean Corpuscular Volume 89.6 fL (80.0-94.0); Mean Platelet Volume 10.8 fL (7.4-10.4); Platelet Count 191 10^3/uL (130-400); Red Blood Cell Count 4.53 10^6/uL (4.70-6.10); Red Cell Dist. Width 13.3 % (11.5-14.5); White Blood Cell Count 6.7 10^3/uL (4.8-10.8)
[2024-11-25 09:31] LABS: ALT (SGPT) 35 U/L (0-50); AST (SGOT) 23 U/L (17-59); Albumin 4.1 g/dl (3.5-5.0); Alkaline Phosphatase 61 U/L (38-126); Blood Urea Nitrogen 9 mg/dl (9-20); Calcium 9.1 mg/dl (8.4-10.2); Carbon Dioxide 27 mmol/L (22-30); Chloride 104 mmol/L (98-107); Direct Bilirubin 0.2 mg/dl (0.0-0.4); Estimated Creatinine Clearance 117 ml/min; Glucose 92 mg/dl (70-99); Magnesium 1.9 mg/dl (1.6-2.3); Sodium 140 mmol/L (135-145); Total Bilirubin 0.9 mg/dl (0.2-1.3); Total Protein 6.7 g/dl (6.3-8.2); eGFR > 60.00
[2024-11-25 11:17] VITALS: BP 128/81
--- NOTE | 2024-11-25 11:43 | CM ---
Chart reviewed and patient plans on returning to home with family when stable, no needs.
Plan; Home no needs.
--- NOTE | 2024-11-25 12:59 | W.PN.GI.CBS2 ---
Addendum entered and electronically signed by Rosa Elena Gay MD 11/25/24 15:08:
I saw and examined the patient.
The BLOOD BANK TECHNOLOGIST's note was reviewed and I agree with the note.
Feeling better. No further vomiting. elevated lipase but CT abdomen-normal pancreas.
plan
Advance diet as tolerated
Continue PPI
Avoid marijuana/alcohol
Patient would like to hold off on EGD during this admission. Discussed benefits and risks in detail.
Repeat CT abdomen/pelvis in 3 to 6 months to evaluate mesenteric/retroperitoneal lymphadenopathy
Would recommend follow-up with GI as outpatient. No further recommendation. Will sign off
Original Note:
Today's Communication / Plan
-
Etiology of symptoms unclear- pancreatitis but noted stable pancreas on CT, esophagitis - new Lexapro but not noted as side effect
Pt feeling better no further vomiting hbg stable 13.7
tolerating clears -- advance to low fat dinner
with esophagitis consider EGD will review timing with Dr. Gay IP vs OP
I left GI contact for 4-6 week follow up
I gave copy of CT to patient and reviewed
t/c repeat CT to follow up on noted adenopathy 3-6 months to ensure improved
cont PPi BID transition to daily on discharge
marijuana/ETOH abstinence
Assessment / Plan
-
Fei is a 34-year-old male otherwise healthy with a history of anxiety recently started Lexapro, chronic daily heavy medical marijuana user who comes in with bloating nausea with no significant pain who had an episode of coffee-ground emesis but
none here in the hospital. Symptoms started last week after a shot of rum Linda which he said made him feel ill and therefore he did not drink anymore. He was worried it was due to starting the new medication Lexapro. He does not drink often and
usually only a shot at social situations. He has no chronic nausea vomiting and has never had pancreatitis or any other GI issue in the past. He denies any heartburn, no regurgitation, not on a PPI. Denies any weight loss appetite changes. No
family history of any GI malignancies or issues.
11/24/24 US abdomen
Small simple cyst arising in the lower pole the right kidney.
No other sonographic abnormality
11/24/24 CT Abd/pel W Iv And Oral Contr
1. Moderate diffuse urinary bladder wall thickening suggesting MODERATE CYSTITIS.
2. Mild hepatomegaly.
3. Mild mesenteric and retroperitoneal lymphadenopathy.
4. Mild circumferential wall thickening in the distal esophagus suggesting esophagitis.
-hematemesis
- Nausea retching bloating with minimal epigastric discomfort--
-conjunctiva hemorrhage with retching
-elevated lipase on admission
-hx prior substance abuse- clear x 4 years
-marijuana use
-CT with cystitis, HM, mesenteric and retroperitoneal adenopathy, distal esophageal thickening
-hx hernia surgery
-anxiety/depression
PLAN:
Etiology of symptoms unclear- pancreatitis but noted stable pancreas on CT, esophagitis - new Lexapro but not noted as side effect
Pt feeling better no further vomiting hbg stable 13.7
tolerating clears -- advance to low fat dinner
with esophagitis consider EGD will review timing with Dr. Gay IP vs OP
I left GI contact for 4-6 week follow up
I gave copy of CT to patient and reviewed
t/c repeat CT to follow up on noted adenopathy 3-6 months to ensure improved
cont PPi BID transition to daily on discharge
marijuana/ETOH abstinence
Subjective
Subjective
Date of Service: November 25, 2024
on clear diet
Objective
Data Reviewed
Laboratory Data:
Laboratory Results
11/25/24 08:30
11/25/24 08:30
Laboratory Results
Magnesium 1.9 mg/dl (1.6-2.3) 11/25/24 08:30
Total Bilirubin 0.9 mg/dl (0.2-1.3) 11/25/24 08:30
AST 23 U/L (17-59) 11/25/24 08:30
ALT 35 U/L (0-50) 11/25/24 08:30
Alkaline Phosphatase 61 U/L (38-126) 11/25/24 08:30
Lipase 1455 U/L (23-300) H* 11/24/24 05:12
Vital Signs and I&O:
Vital Signs
Temp Pulse Resp BP Pulse Ox
97.7 F 48 16 128/81 99
11/25/24 11:17 11/25/24 11:17 11/25/24 11:17 11/25/24 11:17 11/25/24 11:17
I&O
11/24/24 11/25/24 11/26/24
06:59 06:59 06:59
Intake Total 2500 / 2500
Balance 2500 / 2500
Physical Exam
Physical Exam
HEENT: Anicteric and Other (conjuntiva hemorrhage )
Cardiology: Normal Sinus Rhythm
Pulmonary: Clear
GI: Soft, Non Distended and Non Tender
Extremities: No Edema and Other (multiple tattoos )
Neuro: Non Focal
[2024-11-25 15:05] VITALS: BP 150/86
--- NOTE | 2024-11-25 15:29 | CON.ONC ---
Impression
Impression
Mild mesenteric lymphadenopathy
Pancreatitis
Plan
Plan
I suspect the mild lymphadenopathy is reactive to his pancreatitis. I would recommend that a CT scan be repeated in about 4 months. He is being followed by GI, and it is my sense they will be taking care of this. I do not believe anything further
needs to be done at this point. Thank you very much for asking us to see him.
Patient History
History of Present Illness
Consult from hospitalist service regarding mesenteric lymphadenopathy
This 34-year-old man was admitted with vomiting, including possible coffee-ground emesis, and abdominal pain. He underwent CT scan which shows some mild mesenteric lymphadenopathy. There was no radiologic evidence of pancreatitis, but his lipase
was elevated at 1455. He is being managed conservatively, and both his pain and vomiting are improving. He denies prior GI problems.
Past-Medical/Surgical History
He has otherwise been in fairly good health.
Social history: He does admit to regular marijuana usage.
Family history is noncontributory.
Patient Medication
�Medication �Instructions �Recorded �Confirmed �Last Taken �Type
Medical Marijuana 1 puff inhalation HSPRN PRN anxiety 06/25/24 11/24/24 Unknown History
escitalopram oxalate 10 mg tablet 10 mg PO DAILY Mental 11/24/24 11/24/24 11/23/24 History
Health/Anxiety
Active Medications
Generic Name Dose Route Start Last Admin
Trade Name Freq PRN Reason Stop Dose Admin
Escitalopram Oxalate 10 mg 11/25/24 08:00 11/25/24 07:52
Escitalopram 10 Mg Tablet PO 12/23/24 07:59 10 mg
DAILY JOSH Administration
Lactated Ringer's 1,000 mls @ 250 mls/hr 11/24/24 13:05 11/25/24 07:59
Lr IV 1,000 mls
.Q4H JOSH Administration
Pantoprazole Sodium 40 mg 11/24/24 20:00 11/25/24 07:52
Pantoprazole Sodium 40 Mg/10 Ml Vial IV 12/22/24 19:59 40 mg
BID JOSH Administration
Sodium Chloride 0 flush 11/24/24 16:00
Sodium Chloride 0.9% (Flush) Syringe IV 12/22/24 15:59
PER PROTOCOL JOSH
Sodium Chloride 10 ml 11/24/24 20:00 11/25/24 07:52
Sodium Chloride 0.9% (Preservative Free) 10 Ml Vial IV 12/22/24 19:59 10 ml
BID JOSH Administration
Review of Systems
-
All Other Systems: Reviewed and Negative
Physical Exam
Labs
Lab Results
WBC 6.7 10^3/uL (4.8-10.8) 11/25/24 08:30
RBC 4.53 10^6/uL (4.70-6.10) L 11/25/24 08:30
Hgb 13.7 g/dL (13.0-18.0) 11/25/24 08:30
Hct 40.6 % (39.0-52.0) 11/25/24 08:30
MCV 89.6 fL (80.0-94.0) 11/25/24 08:30
MCH 30.2 pg (27.0-31.0) 11/25/24 08:30
MCHC 33.7 g/dL (33.0-37.0) 11/25/24 08:30
RDW 13.3 % (11.5-14.5) 11/25/24 08:30
Plt Count 191 10^3/uL (130-400) 11/25/24 08:30
MPV 10.8 fL (7.4-10.4) H 11/25/24 08:30
Abs Immat Gran (auto) 0.0 10^3/uL (0-0.05) 11/24/24 05:12
Absolute Neuts (auto) 4.3 10^3/uL (1.4-6.5) 11/24/24 05:12
Absolute Lymphs (auto) 2.8 10^3/uL (1.2-3.4) 11/24/24 05:12
Absolute Monos (auto) 0.7 10^3/uL (0.1-0.6) H 11/24/24 05:12
Absolute Eos (auto) 0.2 10^3/uL (0-0.7) 11/24/24 05:12
Absolute Basos (auto) 0.0 10^3/uL (0-0.2) 11/24/24 05:12
Immature Gran % 0.1 % (0-0.5) 11/24/24 05:12
Neutrophils % 53.5 % (42.2-75.2) 11/24/24 05:12
Lymphocytes % 34.1 % (20.5-51.1) 11/24/24 05:12
Monocytes % 9.0 % (1.7-9.3) 11/24/24 05:12
Eosinophils % 2.8 % (0-6) 11/24/24 05:12
Basophils % 0.5 % (0-2) 11/24/24 05:12
Creatinine 0.9 mg/dL (0.7-1.3) 11/25/24 08:30
Vital Signs
Vital Signs
Temp Pulse Resp BP Pulse Ox
98.7 F 48 18 150/86 99
11/25/24 15:05 11/25/24 15:05 11/25/24 15:05 11/25/24 15:05 11/25/24 15:05
[2024-11-25] MEDS: LR IV ×2 (15:57)
--- NOTE | 2024-11-25 16:23 | W.PN.HOSP.TC ---
Today's Communication/Plan
-
Discharge today
Assessment / Plan
Assessment / Plan
Physical Exam
General: No Apparent Distress and Comfortable
HEENT: Normocephalic and Other (+subconjunctival hemorrhage of right eye, medial aspect)
Respiratory: Clear
Cardiac: S1/S2 and Regular Rhythm
GI: Soft, Normal Bowel Sounds and Tender (Mild epigastric and central tenderness)
Musculoskeletal: No Cyanosis
Skin: Warm and Dry
Neuro: Awake, Alert, AO x 3 and Nonfocal/grossly intact
Psych: Calm and Intact Judgment/Insight
Assessment/Plan
Hematemesis
Mild circumferential wall thickening in the distal esophagus suggesting esophagitis
- Isolated episode of hematemesis, suspect likely due to Re Georges tear secondary to recent intermittent forceful vomiting
- Hgb stable - continue to trend Hgb
- Continue Protonix 40 mg PO daily on discharge
- Patient requested to hold off on EGD this admission
- Avoid Marijuana or any Alcohol
- Low fat diet
- Follow-up with GI outpatient in 4 to 6 weeks
Abdominal Pain, epigastric -- concern for mild acute pancreatitis
- with mild abdominal pain and elevated lipase (1455), patient meets criteria for acute pancreatitis
- Status post IV fluids 250 cc/hr, monitor for any urinary retention or volume/fluid overload
- Appreciate GI
Small simple cyst arising in the lower pole the right kidney on abdominal ultrasound
Moderate diffuse urinary bladder wall thickening suggesting MODERATE CYSTITIS on hospital CT Imaging
-Patient denied burning with urination, urinary frequency, suprapubic bladder tenderness or blood in the urine
-Urology follow-up outpatient
Mild hepatomegaly
Mild mesenteric and retroperitoneal lymphadenopathy
-Consulted oncology, suspected that this is reactive to possible pancreatitis
-Repeat CT imaging in about 4 months, follow-up with hem-onc outpatient
DVT Prophylaxis: Lovenox
Code Status: Full Code
More than 30 minutes spent in discharge including
Final examination of the patient
Summarizing hospital stay
Instructions for continuing care to all relevant caregivers
Preparation of discharge records, prescriptions, and referral forms
Total time spent (in minutes): 41
Anticipated Discharge: Today
Subjective/Interval History
-
Date of Service: November 25, 2024
Patient was seen and examined. He denied any more vomiting. He denied any burning with urination, urinary frequency, suprapubic bladder tenderness or blood in the urine.
Objective Data
-
Labs:
Laboratory Results
11/25/24
08:30
WBC 6.7
Hgb 13.7
Hct 40.6
Plt Count 191
Sodium 140
Potassium 4.0
Chloride 104
Carbon Dioxide 27
BUN 9
Creatinine 0.9
Glucose 92
Calcium 9.1
Total Bilirubin 0.9
AST 23
ALT 35
Alkaline Phosphatase 61
Vital Signs:
Vital Signs
Temp Pulse Resp BP Pulse Ox
98.7 F 48 18 150/86 99
11/25/24 15:05 11/25/24 15:05 11/25/24 15:05 11/25/24 15:05 11/25/24 15:05
I&O
11/24/24 11/25/24 11/26/24
06:59 06:59 06:59
Intake Total 2500 / 2500
Balance 2500 / 2500
--- NOTE | 2024-11-25 17:24 | W.DCSUMMARY ---
Discharge Summary
Discharge Data
Date of Admission: 11/24/24
Date of Discharge: 11/25/24
Total time spent discharging patient (in min): 41
-
Pending Results: No
Hospital Course
34 y/o male who came in with vomiting up blood. His lipase was elevated at 1455, and he was thought to have acute pancreatitis and started on aggressive intravenous hydration. He was also started on intravenous proton pump inhibitor. Patient's
symptoms improved and he had no further vomiting. Gastroenterology was consulted and noted that patient did not want to have an upper endoscopy. Oncology was consulted given mesenteric and retroperitoneal lymphadenopathy on CT imaging and they felt
it was reactive to a possible pancreatitis and repeat CT imaging would be needed in about 4 months to follow-up on the lymphadenopathy.
Discharge Plan
-
Patient Disposition: Home (Routine Discharge)
Discharge Diagnosis/Procedures: Hematemesis
Mild circumferential wall thickening in the distal esophagus suggesting esophagitis
Abdominal Pain, epigastric -- concern for mild acute pancreatitis
Small simple cyst arising in the lower pole the right kidney on abdominal ultrasound
Moderate diffuse urinary bladder wall thickening suggesting MODERATE CYSTITIS on hospital CT Imaging
Mild hepatomegaly
Mild mesenteric and retroperitoneal lymphadenopathy
Condition: Good
Diet: Low Fat
Additional Diets: avoid marijuana with recent nausea/vomiting as will worsen symptoms
Activity: As tolerated
Others Tests: consider repeat CT in 3-6 months with noted mild enlarge nodes on CT-- review with primary care in follow up
Activity Restrictions/Additional Instructions:
Avoid Marijuana or any Alcohol
You need repeat CT imaging in about 4 months with outpatient primary care provider or gastroenterology, given your mild mesenteric and retroperitoneal lymphadenopathy
Referrals:
Elle Maynard MD, Resident [Family Provider] - in less than 1 week
Jean Marie Peres MD [Active] - in one to two weeks (Hospital follow-up: Moderate diffuse urinary bladder wall thickening on CT imaging)
Carlita Hawkins DO [Active] - (follow up with Dr. Hawkins or [facility] 4-6 weeks. if recurrent vomiting or blood return to ER )
Additional Discharge Medication Instructions: Pantoprazole is a new medication.
Prescriptions:
New
pantoprazole 40 mg tablet,delayed release (DR/EC)
40 mg PO DAILY Qty: 30 1RF
Continued
escitalopram oxalate 10 mg Tablet
10 mg PO DAILY
Discontinued
Medical Marijuana
1 puff inhalation HSPRN PRN (Reason: anxiety)
Discharge Orders:
Discharge Patient (As Directed); Ordered 11/25/24
Ordered By: Kole Nash
Discharge Date and Time
Discharge Date/Time: 11/25/24 18:08
Print Language: SERBIAN
== END 2024-11-25 18:08 | disposition home or self-care (01) | DRG 439 ==
LOC: 4 WEST ACU 13:15
PROVIDERS: Physician Assistant; ADMITTING PHYSICIAN Hospitalist; CONSULT PHYSICIAN Internal Medicine; CONSULT PHYSICIAN Internal Medicine Hematology & Oncology; EMERGENCY PHYSICIAN Emergency Medicine; FAMILY PHYSICIAN Student in an Organized Health Care Education/Training Program
DX: K85.90 Acute pancreatitis without necrosis or infection, unspecified (principal); K92.0 Hematemesis; R59.0 Localized enlarged lymph nodes; R16.0 Hepatomegaly, not elsewhere classified; R74.8 Abnormal levels of other serum enzymes
CPT/HCPCS: 74177; 76700; 80053; 82248; 83690; 83735; 85025; 85027; 86850; 86900; 86901; 96361; 96374; 99285; Q9967